=== PATIENT | male | born 1960 | race African-American/Black ===

== ENCOUNTER 2019-07-23 09:40 | Day surgery (SDC) | payer OTHER ==
[2019-07-17 15:15] VITALS: BMI 29.2
--- NOTE | 2019-07-23 08:05 | HP ---
History & Physical Update - History History: No Change - Physical Physical: No Change - Assessment Assessment: No Change - Plan Plan: No Change (H&P is complete/accurate/UTD. C/o LBP with RLE radiculopathy. Here today for L3/4 laminectomy possible discectomy.)
[2019-07-23] MEDS ORDERED: BUPIVACAINE HCL/PF 0.5% (5 MG/ML) 30 ML VIAL IJ ONE (09:53)
[2019-07-23] MEDS ORDERED: MIDAZOLAM HCL 2 MG/2 ML SINGLE DOSE VIAL ONE (09:53)
[2019-07-23] MEDS ORDERED: oxyCODONE HCL 10 MG SUSTAINED ACTING TABLET PO STA (09:58)
[2019-07-23] MEDS ORDERED: LIDOCAINE 1%/EPI 1:100000 (20 ML MULTI DOSE VIAL) ONE (13:11)
[2019-07-23] MEDS ORDERED: DEXAMETHASONE SOD PHOSPHATE/PF 10 MG/ML SDV ONE (13:38)
[2019-07-23] MEDS ORDERED: THROMBIN (RECOMBINANT) 5,000 UNIT VIAL TP ONE (14:10)
[2019-07-23] MEDS ORDERED: ONDANSETRON 4 MG/2 ML VIAL ONE (15:28)
[2019-07-23] MEDS ORDERED: ONDANSETRON 4 MG/2 ML VIAL IVPUSH PRN (15:34)
[2019-07-23] MEDS ORDERED: oxyCODONE HCL 5 MG TABLET PO PRN (15:34)
[2019-07-23] MEDS ORDERED: methylPREDNISolone ACET (DEPO) 40 MG/1 ML VIAL ONE (15:36)
[2019-07-23] MEDS ORDERED: ceFAZolin SODIUM 1 GM VIAL ONE (15:37)
[2019-07-23] MEDS ORDERED: LACTATED RINGERS SOLUTION 1,000 ML IV SCH (15:45)
[2019-07-23] MEDS ORDERED: PHENYLEPHRINE HCL 10 MG/1 ML SINGLE DOSE VIAL ONE (15:52)
[2019-07-23] MEDS ORDERED: GUM MASTIC/STORAX/MSAL/ALCOHOL 1 DRP DROPSBTL MC ONE (16:35)
[2019-07-23] MEDS ORDERED: methylPREDNISolone ACET (DEPO) 40 MG/1 ML VIAL IM ONE (16:36)
--- NOTE | 2019-07-23 16:51 | OP ---
Operative Note - Note: Operative Date: 07/23/19 Pre-Operative Diagnosis: L3/4 stenosis, Herniated disc, LE radiculopathy Operation: L3/4 bilateral laminectomy with right discectomy Post-Operative Diagnosis: Same as Pre-op Surgeon: Benjamin Dumont Structural Steel Worker: Bruno Ordoñez Anesthesiologist/AIRCRAFT STRESS ANALYST: Navarro Ortiz Anesthesia: Spinal Specimens Removed: L3/4 disc Estimated Blood Loss (mls): 20 Fluid Volume Replaced (mls): 1,000 Operative Report Dictated: Yes
--- NOTE | 2019-07-23 16:52 | SURG ---
Surgery Hadoop Analyst Note Hadoop Analyst: Bruno Ordoñez PA-C Date of Service: 07/23/19 Diagnosis: L3/4 stenosis, Herniated disc, LE radiculopathy Procedure: L3/4 bilateral laminectomy with right discectomy I was present for the entirety of the operative procedure. For further detail, please refer to operative report. Visit type - Case Type Case Type: Scheduled - New patient This patient is new to me today: Yes Date on this admission: 07/23/19
--- NOTE | 2019-07-23 17:09 | OP ---
DATE OF OPERATION: 07/23/2019 PREOPERATIVE DIAGNOSIS: Spinal stenosis L3-4. POSTOPERATIVE DIAGNOSIS: Spinal stenosis L3-4. PROCEDURE PERFORMED: Laminectomy L3-4. SURGEON: Benjamin Dumont MD SAMPLE MAKER ORIGINAL: LISA Truong ESTIMATED BLOOD LOSS: 60 mL. INTRAVENOUS FLUIDS: Per Anesthesia. ANESTHESIA: Spinal/TLIP. COMPLICATIONS: There were none. DISPOSITION: Patient brought to the PACU in stable condition. INDICATIONS FOR SURGERY: Patient is a 59-year-old gentleman who has been suffering from pain from his back down his legs. X-rays and MRI were completed, which noted that he had spinal stenosis at L3 down to L4. He had gone through an exhaustive course of treatment for this, which included medications, physical therapy as well as injections. Unfortunately, his pain continued to persist despite all this. At this point, risks, benefits, and alternatives were discussed, and the patient consented to surgery. DESCRIPTION OF PROCEDURE: Patient was brought to the operating room by the Anesthesia staff. After appropriate patient identification was performed, spinal anesthesia was given. A TLIP block was also given. Patient was able to position himself prone onto the OR table with all areas and bony prominences well padded at this time. Two needles were placed into the back to lulu off the L3-4 segment. X-ray was taken to confirm this was correct. Needle was removed, and 10 mL of lidocaine with epinephrine was injected into his back. At this time, his back was prepped and draped in a sterile manner. At this point, a time-out was completed. An incision was made from the top of L3 down to the bottom of L4. Dissection was carried down to the fascia. Fascia was split open at this time, and appropriate retractors were then placed in. A spinal needle was placed onto the L3-4 lamina to lulu off the L3-4 level. X-ray was taken to confirm this was correct. Needle was removed. The interspinous ligament at L3-4 was removed. Portions of the L3-L4 lamina were removed. Portions of the lamina were removed. Flavum was identified. The thecal sac was mobilized medially. A disk herniation was noted and removed. A complete decompression was performed such that by the end of the procedure the L4 nerve root appeared to be well decompressed. All bleeding was well controlled at this time. Steroid was placed over the nerve root. FloSeal was placed over that. The fascia was closed with a No. 1 Vicryl suture. The subcutaneous tissue was closed with 2-0 Vicryl suture. Skin was closed with 3-0 Monocryl suture. Dermabond was applied. Steri-Strips were applied. A sterile dressing was applied. Patient was placed supine on the OR bed, brought to the PACU in stable condition. Lukas DUFFY/[id number]
[2019-07-23 18:35] VITALS: TEMP 97.9
[2019-07-23 19:02] VITALS: BP 129/78; PULSE 73
--- NOTE | 2019-07-27 17:00 | PATH ---
Surgical Pathology Report Patient Name: KD ARCE [facility]. Rec. #: [id number] /Age/Gender: 1960 (Age: 59) / M Account: [id number] Location: [facility] AMBULATORY Taken: 07/23/2019 Received: 07/23/2019 Reported: 07/27/2019 Physicians: Benjamin Dumont M.D. Specimen(s) Received DISC L3-4 Clinical History Spinal stenosis L3-4 Final Diagnosis DISC L3-4, DISCECTOMY: FIBROCARTILAGINOUS TISSUE WITH FOCAL FIBROSIS AND DEGENERATIVE CHANGE. Electronically Signed Cally Brown M.D. Gross Description Received in formalin labeled "disc L3-4," is a 1.1 x 0.8 x 0.1 cm aggregate of perrin fragments of fibrocartilaginous tissue. The specimen is submitted in toto in one cassette. /07/24/2019 saudi07/24/2019
== END 2019-07-23 19:15 | disposition home or self-care (01) ==
LOC: FASU 09:40
PROVIDERS: ATTEND Orthopaedic Surgery Orthopaedic Surgery of the Spine
PROC: 01NB0ZZ Release Lumbar Nerve, Open Approach (ICD-10-PCS; principal; 2019-07-23 12:00)
DX: M48.061 Spinal stenosis, lumbar region without neurogenic claudication (principal)
CPT/HCPCS: 88304-TC; 94760